=== PATIENT | male | born 1985 | race American Indian/Alaskan Native ===

== ENCOUNTER → 2025-04-20 | Outpatient (CLI) | payer OTHER, SELFPAY ==
--- NOTE | 2025-04-20 15:30 | XR_ITS ---
Examination: CT brain head without contrast. 2-D sagittal coronal reconstructions Date and time of exam:April 20, 2025 at 1541 hours INDICATIONS: Headaches beginning September 2024 CTDI: vol (mGy):51 DLP: (mGycm):1002 Technique: Multiple CT axial sections of the brain have been obtained, 5 mm slice thickness. Contrast has not been administered. 2-D sagittal, coronal reconstructions have been obtained Low dose protocols were performed. One or more of the following dose reduction techniques were used; automated exposure control, adjustment of the mA and/or KV according to patient size, use of iterative reconstruction technique. Findings: No significant ventricular enlargement. Intra-axial or extra-axial hemorrhage density is not seen. No mass effect or midline shift Basal cisterns are not remarkable. Fourth ventricle is midline. Cranial vault intact. Impression: Negative for acute hemorrhage, mass effect or midline shift
== END | disposition home or self-care (01) ==
PROVIDERS: PCP Physician Assistant; Referring Provider Physician Assistant; Visit Provider Physician Assistant
DX: R51.9 Headache, unspecified (principal); R29.6 Repeated falls; R29.90 Unspecified symptoms and signs involving the nervous system; Z87.820 Personal history of traumatic brain injury; Z87.828 Personal history of other (healed) physical injury and trauma
CPT/HCPCS: 70450

== ENCOUNTER 2025-07-25 18:57 | Emergency (ER) | payer OTHER, SELFPAY ==
[2025-07-25 19:51] VITALS: BP 117/64; PULSE 64; RESP 20; TEMP 36.6; O2SAT 97
--- NOTE | 2025-07-25 20:05 | XR_ITS ---
Examination: Foot, left, 3 views Technique: AP, oblique, lateral views foot, 3 views Date and time of exam: July 25, 20252020 hrs. Indications: Injured the foot today, foot pain. Findings: Old fracture deformity proximal phalanx fifth digit No definite acute fracture No foreign body Impression: No acute fracture. Recommend short-term follow-up foot films as clinically warranted
--- NOTE | 2025-07-25 20:05 | XR_ITS ---
Examination: Knee, left , 3 views Technique: Knee AP, lateral, oblique 3 views Date and time of exam: July 25, 2025 at 2021 hrs. Indications: Injury to the knee today, knee pain Findings: No acute fracture No dislocation No foreign body. Small knee effusion Impression: No acute fracture
--- NOTE | 2025-07-25 20:05 | XR_ITS ---
Examination: Left femur 2 views Technique: AP lateral left femur 2 views Date and time: July 25, 20252034 hrs. Indications: Injury to leg today, leg pain. Findings: No acute hip fracture or dislocation. Shaft of the femur intact Impression: No acute fracture
--- NOTE | 2025-07-25 20:05 | XR_ITS ---
Examination: Left ankle 2 views Technique: AP lateral left ankle 2 views Date and time: July 25, 20252032 hrs. Indications: Injury to the ankle today, ankle pain. Findings: No acute fracture. No dislocation No foreign body Impression: No acute fracture
--- NOTE | 2025-07-25 20:05 | XR_ITS ---
Examination: Tibia-Fibula, left , 2 views Technique: Tibia-fibula AP lateral 2 views Date and time of exam: July 25, 20252020 hrs. Indications: Injury to the lower leg today, lower leg pain. Findings: No acute fracture. No dislocation. No foreign body. Impression: No acute fracture.
--- NOTE | 2025-07-25 21:37 | EDNOTE_ITS ---
Lower Extremity Injury RME/HPI General Chief Complaint: Extremity Injury, Lower Stated Complaint: L) LEG PAIN/INJURY Time Seen by Provider: 07/25/25 19:16 Arrival date/time: The 07/25/25 18:57 This is a case of 40-year-old male with no medical history came in in the emergency room due to left lower extremities injury history of present illness started yesterday when the patient were riding horse accidentally fell and the horse fell on his left lower extremities sustaining a laceration on the left lower extremities multiple abrasion on the left thigh left knee and contusion of left thigh with pain and swelling on the left ankle patient denies any head neck chest or abdominal injury no loss of consciousness denies any numbness weakness or tingling sensation patient tetanus shot is up-to-date Limitations: no limitations Related Data Home Medications ?Medication ?Instructions ?Recorded ?Confirmed carisoprodol 350 mg tablet (Soma) 350 mg PO HS #0 tabs 09/10/17 Previous Rx's ?Medication ?Instructions ?Recorded cephalexin 500 mg capsule 500 mg PO TID 10 days #30 ca ps 07/25/25 mupirocin 2 % topical ointment 1 applic topical TID #2 2 grams 07/25/25 Allergies Allergy/AdvReac Type Severity Reaction Status Date / Time hydrocodone Allergy Severe ITCH Verified 07/25/25 19:01 Review of Systems Review of Systems Systems Reviewed: All systems reviewed, normal except as documented Constitutional Constitutional: Reports system reviewed and no additional complaints, except as documented and Reports as per HPI Cardiovascular Cardiovascular: Reports system reviewed and no additional complaints, except as documented and Reports as per HPI Respiratory Respiratory: Reports system reviewed and no additional complaints, except as documented and Reports as per HPI Gastrointestinal Gastrointestinal: Reports system reviewed and no additional complaints, except as documented and Reports as per HPI Musculoskeletal Musculoskeletal: Reports system reviewed and no additional complaints, except as documented and Reports as per HPI Integumentary/Breasts Skin/Breast: Reports system reviewed and no additional complaints, except as documented and Reports as per HPI Neurologic Neurologic: Reports system reviewed and no additional complaints, except as documented Past Medical History Social History SMOKING STATUS: Current every day smoker ED Exam General Limitations: Present no limitations General appearance: Present alert, in no apparent distress and other (Child is awake alert oriented not in distress nontoxic looking well-hydrated well- nourished) Head Head exam: Present atraumatic, normocephalic and normal inspection Eye Eye exam: Present normal appearance, PERRL and EOMI ENT ENT exam: Present normal exam, normal oropharynx and mucous membranes moist Neck Neck exam: Present normal inspection, full ROM and trachea midline; Absent tenderness, meningismus, lymphadenopathy or thyromegaly Chest Chest inspection: Present normal inspection and symmetric chest wall rise; Absent tenderness Respiratory Respiratory exam: Present normal lung sounds bilaterally; Absent respiratory distress, wheezes, stridor, accessory muscle use or prolonged expiratory phase Cardiovascular Cardiovascular exam: Present regular rate, normal rhythm and normal heart sounds; Absent bradycardia, tachycardia, irregular rhythm, systolic murmur or diastolic murmur Abdominal Exam Abdominal exam: Present soft and normal bowel sounds; Absent distention, tenderness, guarding, rebound, rigidity, diminished bowel sounds, hyperactive bowel sounds, hypoactive bowel sounds or organomegaly Extremities Exam Extremities exam: Present normal inspection and full ROM Expanded Lower Extremity Exam Hip/Pelvis exam: Present normal inspection, full ROM and other (ROM intact neurovascular intact); Absent tenderness or swelling Upper leg exam: Present normal inspection, full ROM, abrasion, ecchymosis and other (Contusion noted left thigh with some abrasion); Absent tenderness, swelling, laceration, deformity, crepitus, dislocation or erythema Knee exam: Present normal inspection, full ROM, abrasion and other (ROM intact neurovascular intact); Absent tenderness, swelling, laceration, ecchymosis, deformity, crepitus, dislocation, erythema, effusion, anterior drawer sign, posterior draw sign, pain with valgus, laxity with valgus, pain with varus, laxity with varus or knee extension intact Lower leg exam: Present tenderness and laceration (3 cm laceration old no bony injury superficial only no abscess no cellulitis ROM intact neurovascular); Absent swelling, abrasion, ecchymosis, deformity, crepitus, dislocation, erythema, palpable cord, Homans' sign or Achilles tendon intact Ankle exam: Present tenderness, swelling and other (Moderate tenderness on the left lateral aspect of the left ankle with moderate swelling no crepitation no deformity no redness no cellulitis ROM is limited neurovascular intact); Absent abrasion, laceration, ecchymosis, deformity, crepitus, dislocation, erythema, tenderness over talofibular lig or anterior draw sign Foot/toe exam: Present normal inspection, full ROM and other (ROM intact neurovascular intact); Absent tenderness or swelling Back Exam Back exam: Present normal inspection and full ROM; Absent tenderness, CVA tenderness (R), CVA tenderness (L), muscle spasm, paraspinal tenderness, vertebral tenderness, rashes, sciatic notch tenderness (R), sciatic notch tenderness (L), straight leg raise (R) or straight leg raise (L) Neurological Exam Neurological exam: Present alert, oriented X3, CN II-XII intact, normal gait (Unable due to pain on the left lower extremities) and other (Awake alert oriented x 4 no focal deficit GCS 15/15 memory intact no slurring of speech no facial droop sensory reflex were normal motor on the left lower extremities unable due to pain on the left lower extremities negative Babinski); Absent motor sensory deficit or reflexes normal Psychiatric Psychiatric exam: Present normal affect and normal mood Skin Skin exam: Present warm, dry, intact, normal color and other (AAA abrasion on the left lower extremities with old laceration in the left anterior leg) Course Quality Measures none Orders Category Date Time Status XR ankle LT 2V Stat Exams 07/25/25 20:05 Completed XR femur LT 2V Stat Exams 07/25/25 20:05 Completed XR foot comp LT min 3V Stat Exams 07/25/25 20:05 Completed XR knee LT 3V Stat Exams 07/25/25 20:05 Completed XR tibia fibula LT 2V Stat Exams 07/25/25 20:05 Completed TET,DIP/PERT AC (Adult)-Tdap [Boostrix Adult (Tdap) Med 07/25/25 20:05 Discontinued Vacc] 0.5 ml IMI .ONCE ONE ceFAZolin/D5W 1 GM IVPB [Ancef Ivpb] Med 07/25/25 20:06 Pending 1 gm in 50 ml IV Q8HR ceFAZolin/D5W 1 GM IVPB [Ancef Ivpb] Med 07/25/25 20:15 Discontinued 1 gm in 50 ml IV X1 Vital Signs Vital signs: Vital Signs Temperature 97.9 F 07/25/25 19:51 Pulse Rate 64 07/25/25 19:51 Respiratory Rate 20 07/25/25 19:51 Blood Pressure 117/64 07/25/25 19:51 Pulse Oximetry (%) 97 07/25/25 19:51 Oxygen Delivery Method Room Air 07/25/25 19:51 Oxygen saturation is 97% in room air Extremity Injury, Lower MDM Narrative MDM Narrative:: This is a case of 40-year-old male with no medical history came in in the emergency room due to left lower extremities injury history of present illness started yesterday when the patient were riding horse accidentally fell and the horse fell on his left lower extremities sustaining a laceration on the left lower extremities multiple abrasion on the left thigh left knee and contusion of left thigh with pain and swelling on the left ankle patient denies any head neck chest or abdominal injury no loss of consciousness denies any numbness weakness or tingling sensation patient tetanus shot is up-to-date physical examination patient vital signs stable patient is awake alert oriented not in distress nontoxic looking neurological exam is normal awake alert oriented x 4 no focal deficit GCS 15/15 steady gait neck and back exam were normal patient noted to have contusion on the left thigh abrasion on the left thigh and left knee with 3 cm laceration which is old not infected on the left anterior leg with pain and swelling on the left ankle and left foot moderate tenderness on the left ankle no crepitation no deformity no redness no abscess no cellulitis ROM is limited on the left ankle due to pain sensory intact neurovascular intact x-ray of the left femur knee tibia-fibula ankle and foot were all normal no fracture no dislocation wound was cleaned with normal saline and applied triple antibiotic unable to repair the laceration on the left leg due to old more than 24 hours no signs and symptoms of infection ankle brace and Alex bandage was applied on the left ankle and left knee patient tolerated well neurovascular intact crutches was given RICE treatment will continue by the patient at home he was advised wound care finish the course of antibiotic and follow-up with PCP in 2 days for reevaluation and for any worsening symptoms or any emergent concern he will retu rn in the emergency room immediately or call 911 Patient was discharged with comfortable condition walking with stable gait. Patient verbalized no further complains explained diagnosis and answered patient question. Patient is comfortable with the proposed management plan including the need to follow up with his/her primary care physician and any specialist if applicable Discussed patient for any urgent condition or worsening sx, He/She needed to go to emergency room immediately or call 911. Patient acknowledge the responsibility to follow up as instructed and to monitor her/his symptoms. For any persistence of the symptoms for more than 3-5 days return precaution advised. Discussed the result of the test and was given printed discharge instruction Patient data External records reviewed:: [facility] previous records Clinical information provided by:: patient Social determinants that could affect healthcare access:: none Patient has the following chronic illnesses:: None How is presenting disease/condition affected by chronic disease/condition?: no chronic disease Evaluation data The following diagnostics were reviewed and interpreted by me:: radiology exam (s) Lab and/or radiology exams considered but not ordered:: Reviewed Interpretation Summary: Reviewed Medications / Prescriptions Medications or Prescriptions considered but not ordered:: Given Medication administrations:: Medication Administration History Cefazolin Sodium/Dextrose (Ancef Ivpb) 1 gm in 50 mls @ 100 mls/hr IV Q8HR MATTHEW Stop: 08/01/25 20:05 Discontinued Medications Diphtheria/Tetanus/Acell Pertussis (Diphth,Pertuss(Acell),Tet Vac 0.5 Ml Syr- Adult) 0.5 ml IMi .ONCE ONE Stop: 07/25/25 20:06 Cefazolin Sodium/Dextrose (Ancef Ivpb) 1 gm in 50 mls @ 100 mls/hr IV X1 ONE Stop: 07/25/25 20:44 Given Consultations Consultation(s) initiated? (list below): No Diagnosis Extremity Injury, Lower Differential Diagnosis: ankle sprain and strain, acute internal derangement of knee, fracture of femur, fracture of toe and ankle fracture Most likely diagnosis given after review of the tests above:: Sprain contusion abrasion laceration Admission Indicated Admission indicated?: not indicated Explain why admission is indicated or not indicated:: Not indicated Admission Request Was there a request for admission?: No Admission Attestation Admission request attestation: Not indicated Disposition Plan Disposition Plan: Discharge Discharge Attestation Discharge Attestation: The patient and all family members were given an opportunity to ask questions and understood the discharge instructions. Discharge instructions specifically effects, indications for sooner follow up or return to the emergency department, and the expected course of current diagnosis. Patient condition: Stable Discharge Plan Plan Patient Disposition: HOME (Self Care) Patient condition on transfer: Stable Prescriptions/Referrals Prescriptions/Med Rec: New cephalexin 500 mg capsule 500 mg PO TID 10 Days Qty: 30 0RF mupirocin 2 % ointment 1 applic topical TID Qty: 22 0RF No Action carisoprodol [Soma] 350 MG tablet 350 mg PO HS Qty: 0 Referrals: No Primary/Family,Physician [Primary Care Provider] - In 1 week Problem List Clinical Impression: Laceration of left leg, Abrasion of multiple sites of lower extremity, Contusion of left thigh, Left knee sprain, Left ankle sprain, Sprain of foot, left Patient/Caregiver Discharge Instructions Education Materials: ED Abrasions, ED ALEX Wrap, ED Contusion, Lower Extremity, ED Foot Sprain, ED Knee Sprain, ED Laceration, Old: Not Sutured, ED Ankle Sprain (Adult), ED RICE Additional Instructions: Follow-up with your primary care physician in 2 days for reevaluation and wound check worsening symptoms or any emergent concerns such as numbness weakness or tingling sensation or signs and symptoms of infection redness swelling discharge from the wound pain fever chills return to the emergency room immediately or call 911 ice pack and warm compress as needed for pain keep the ankle splint and Alex bandage on the left ankle and left knee in place until cleared by your primary care physician use of crutches for ambulation is advised no weightbearing on the left ankle if the symptoms persist for more than 5 to 7 days return to the emergency room or go to your primary care physician to be referred to Ortho for possible MRI to rule out ligament injury take Tylenol Motrin as needed for pain finish the course of antibiotic keep the wound clean and dry Print Language: Nepali Stand Alone Forms: Leticia Award Info., Patient Portal Info Letter PA/CHRISTINA Supervising Physician PA/CHRISTINA Supervising Physician: Dr. Manzo
[2025-07-25] MEDS: ceFAZolin/D5W 1 GM IVPB 1 GM/50 ML BAG IV (22:00)
== END 2025-07-25 22:37 | disposition home or self-care (01) ==
PROVIDERS: Emergency Provider Emergency Medicine
DX: S70.312A Abrasion, left thigh, initial encounter (principal); S83.92XA Sprain of unspecified site of left knee, initial encounter; S93.402A Sprain of unspecified ligament of left ankle, initial encounter; S99.922A Unspecified injury of left foot, initial encounter; V80.010A Animal-rider injured by fall from or being thrown from horse in noncollision accident, initial encounter; Y93.52 Activity, horseback riding
CPT/HCPCS: 73552; 73562; 73590; 73600; 73630; 96365; 99283; J0689